=== PATIENT | male | born 1970 | race Caucasian/White ===

== ENCOUNTER 2022-05-12 23:39 | Emergency (ER) | payer MEDICAID, OTHER ==
[~2022-05-12] VITALS: Ht 180.3 cm; Wt 104.4 kg
[~2022-05-12 23:39] MED LIST: PHEN30TA50
[2022-05-13] MEDS ORDERED: KETOROLAC 60MG/2ML VIAL IM STA (02:27)
[2022-05-13] MEDS ORDERED: LIDO30CR46 TP (03:19)
[2022-05-13] MEDS ORDERED: PHEN1SUP42 RC (03:19)
[2022-05-13 03:45] VITALS: BP 110/70
== END 2022-05-13 03:45 | disposition home or self-care (01) ==
LOC: ER 23:39
DX: K64.5 Perianal venous thrombosis (principal); G40.909 Epilepsy, unspecified, not intractable, without status epilepticus
CPT/HCPCS: 96372; 99283; J1885